=== PATIENT | male | born 1975 | race American Indian/Alaskan Native ===

== ENCOUNTER 2016-09-11 17:22 | Inpatient (IN) | payer OTHER ==
[2016-09-11 17:23] VITALS: BMI 46.0
--- NOTE | 2016-09-11 17:59 | ED PDOC ---
HPI: General Adult Time Seen by Provider: 09/11/16 17:57 Chief Complaint (Nursing): Back Pain Chief Complaint (Provider): NECK PAIN History Per: Patient (41 Y/O MALE HERE WITH COMPLAINT OF NECK PAIN INTRACTABLE. DENIES ANY URINARY/RECTAL INCONTINENCE. HAS BEEN ON IBUPFRIN/HYDROCODONE FOR PAIN MANAGEMENT. SENT FOR EVALUATION/ADMISSION BY DR. OLSEN.) Past Medical History Reviewed: Historical Data, Nursing Documentation, Vital Signs Vital Signs: Last Vital Signs Temp 98.7 F 09/11/16 17:42 Pulse 98 H 09/11/16 17:42 Resp 18 09/11/16 17:42 BP 140/74 09/11/16 17:42 Pulse Ox 100 09/11/16 18:28 - Medical History PMH: Anxiety, Back Problems, Depression, HTN Denies: HIV, Chronic Kidney Disease - Surgical History Surgical History: Back Surgery - Family History Family History: States: Unknown Family Hx - Home Medications Home Medications: Ambulatory Orders Medication Instructions Recorded GlipiZIDE [Glucotrol] 5 mg PO DAILY 10/18/15 metFORMIN [glucOPHAGE] 500 mg PO BID 10/18/15 Hydrochlorothiazide [HCTZ] 12.5 mg PO DAILY 10/22/15 Zolpidem [Ambien] 10 mg PO HS 10/22/15 Hydrocodone/Acetaminophen 1 tab PO TID PRN 09/11/16 [Hydrocodon-Acetaminophen 5-325] Nystatin [Mycostatin Cream] 1 appl TOP TID 09/11/16 Triamcinolone 0.1% [Triamcinolone 1 appl TOP TID 09/11/16 0.1% Cream] - Allergies Allergies/Adverse Reactions: Allergies Allergy/AdvReac Type Severity Reaction Status Date / Time No Known Allergies Allergy Verified 10/22/15 07:43 Review of Systems ROS Statement: Except As Marked, All Systems Reviewed And Found Negative Musculoskeletal: Positive for: Neck Pain Physical Exam - Reviewed Nursing Documentation Reviewed: Yes Vital Signs Reviewed: Yes - Physical Exam Appears: Positive for: Well, Non-toxic, No Acute Distress Head Exam: Positive for: ATRAUMATIC, NORMAL INSPECTION, NORMOCEPHALIC Skin: Positive for: Normal Color, Warm, DRY Eye Exam: Positive for: EOMI, Normal appearance, PERRL ENT: Positive for: Normal ENT Inspection Neck: Positive for: Painless ROM. Negative for: Normal (PARACERVICAL TENDERNESS ) Cardiovascular/Chest: Positive for: Regular Rate, Rhythm Respiratory: Positive for: CNT, Normal Breath Sounds Gastrointestinal/Abdominal: Positive for: Normal Exam, Bowel Sounds, Soft Back: Positive for: Normal Inspection Extremity: Positive for: Normal ROM Neurologic/Psych: Positive for: Alert, Oriented - Laboratory Results Result Diagrams: 09/11/16 18:21 - ECG O2 Sat by Pulse Oximetry: 100 - Progress ED Course And Treament: D/W DR. GUERRIER. Disposition - Clinical Impression Clinical Impression: Intractable back pain - Patient ED Disposition Is Patient to be Admitted: No - Disposition Disposition Time: 17:59 Condition: FAIR - Pt Status Changed To: Hospital Disposition Of: Inpatient - Admit Certification Admit to Inpatient:: After my assessment, the patient will require hospitalization for at least two midnights. This is because of the severity of symptoms shown, intensity of services needed, and/or the medical risk in this patient being treated as an outpatient.
[2016-09-11 18:28] LABS: BASO # 0.1 K/uL (0.0-0.2); BASO % 1.2 % (0.0-2.0); EOS # 0.1 K/uL (0.0-0.7); EOS % 1.7 % (0.0-4.0); HEMATOCRIT 48.7 % (35.0-51.0); LYMPH # 2.4 K/uL (1.0-4.3); MEAN CELL VOLUME 90.8 fl (80.0-94.0); MEAN CORPUSCULAR HEMOGLOBIN 29.4 pg (27.0-31.0); MEAN CORPUSCULAR HGB CONC 32.4 g/dL (33.0-37.0); MEAN PLATELET VOLUME 10.1 fl (7.2-11.7); MONO # 0.5 K/uL (0.0-0.8); MONO % 7.3 % (0.0-10.0); NEUT # 3.3 K/uL (1.8-7.0); NEUT % 51.8 % (50.0-75.0); NRBC % 0.1 % (0.0-0.0); RED CELL DISTRIBUTION WIDTH 12.8 % (11.5-14.5); WHITE BLOOD COUNT 6.3 K/uL (4.8-10.8)
[2016-09-11 19:06] LABS: ALB/GLOB RATIO 1.2 (1.0-2.1); ALKALINE PHOSPHATASE 94 U/L (38-126); ALT/SGPT 51 U/L (21-72); AST/SGOT 40 U/L (17-59); BILIRUBIN,TOTAL 0.8 mg/dl (0.2-1.3); BLOOD UREA NITROGEN 13 mg/dl (9-20); CALCIUM 9.4 mg/dL (8.4-10.2); CARBON DIOXIDE 24 mmol/L (22-30); CHLORIDE 101 mmol/L (98-107); GFR AFRICAN-AMERICAN > 60; GLUCOSE,RANDOM 297 mg/dL (75-110); POTASSIUM 4.1 MMOL/L (3.6-5.0); SODIUM 138 mmol/l (132-148); TOTAL PROTEIN 8.4 G/DL (6.3-8.2)
[2016-09-11 19:07] LABS: PARTIAL THROMBOPLASTIN TIME 27.4 Seconds (25.6-37.1)
[2016-09-11] MEDS: Insulin Regular 100 units/ml SC SCH (23:16)
[2016-09-12] MEDS ORDERED: Sodium Chloride 0.9% 1,000 ML IV SCH (06:00)
[2016-09-12] MEDS: Dextrose 5%/0.9% NS 1,000 ML IV SCH ×2 (06:07→19:29)
[2016-09-12] MEDS ORDERED: Succinylcholine 200 mg/10 ml Inj IV ONE (06:30)
[2016-09-12] MEDS ORDERED: Midazolam 2 MG/2 ML VIAL ONE ×2 (06:30→08:07)
[2016-09-12] MEDS ORDERED: Propofol 10 mg/ml Inj (20 ML) ONE ×2 (06:30→07:40)
[2016-09-12] MEDS ORDERED: Lidocaine Hydrochloride 5 ML INJ ONE (06:31)
[2016-09-12] MEDS ORDERED: Rocuronium 10 mg/ml (5 ml) ONE (06:31)
[2016-09-12] MEDS ORDERED: Neostigmine Methylsulfate 3mg/3ml Syringe IV ONE (06:31)
[2016-09-12] MEDS ORDERED: Thrombin Topical 5,000 IU Spray Kit ONE (07:08)
[2016-09-12] MEDS ORDERED: Absorbable Gelatin Sponge Size 12-7 ONE (07:08)
--- NOTE | 2016-09-12 07:23 | CP.PCM.HP ---
History of Present Illness - History of Present Illness History of Present Illness: This is a 41 y/o male admitted for intractable neck pain and radiculopathy. Diagnosed to have cervical disc diseasae and was started on PT and pain mgt but to no avail. he progressively worsened and sought consult through the ER. He has a hx of DM diagnosed a year ago. Had Lumbar laminectomy last year. Present on Admission - Present on Admission Any Indicators Present on Admission: No History of DVT/PE: No History of Uncontrolled Diabetes: Yes Urinary Catheter: No Decubitus Ulcer Present: No Review of Systems - Musculoskeletal Musculoskeletal: Arthralgias, Back Pain, Neck Pain, Radiating Pain into Limb, Tingling Past Patient History - Past Medical History & Family History Past Medical History?: Yes - Past Social History Smoking Status: Never Smoked - CARDIAC Hx Cardiac Disorders: Yes Hx Hypertension: Yes - PULMONARY Hx Respiratory Disorders: No - NEUROLOGICAL Hx Neurological Disorder: No - HEENT Hx HEENT Problems: No - RENAL Hx Chronic Kidney Disease: No - ENDOCRINE/METABOLIC Hx Endocrine Disorders: Yes Hx Diabetes Mellitus Type 2: Yes - HEMATOLOGICAL/ONCOLOGICAL Hx Blood Disorders: No Hx Human Immunodeficiency Virus (HIV): No - INTEGUMENTARY Hx Dermatological Problems: No - MUSCULOSKELETAL/RHEUMATOLOGICAL Hx Musculoskeletal Disorders: Yes Hx Falls: No Hx Unsteady Gait: Yes - GASTROINTESTINAL Hx Gastrointestinal Disorders: No - GENITOURINARY/GYNECOLOGICAL Hx Genitourinary Disorders: No - PSYCHIATRIC Hx Psychophysiologic Disorder: Yes Hx Anxiety: Yes Hx Depression: Yes Hx Substance Use: No - SURGICAL HISTORY Hx Surgeries: Yes Other/Comment: 10/19/2015-S/P Laminectomy and decompression - ANESTHESIA Hx Anesthesia: Yes Hx Anesthesia Reactions: No Hx Malignant Hyperthermia: No Has any member of the family had a problem w/ anesthesia?: No Meds Allergies/Adverse Reactions: Allergies Allergy/AdvReac Type Severity Reaction Status Date / Time No Known Allergies Allergy Verified 10/22/15 07:43 Physical Exam - Head Exam Head Exam: NORMAL INSPECTION - Eye Exam Eye Exam: Normal appearance - Neck Exam Neck exam: Positive for: Normal Inspection - Respiratory Exam Respiratory Exam: Clear to Auscultation Bilateral - Cardiovascular Exam Cardiovascular Exam: REGULAR RHYTHM - GI/Abdominal Exam GI & Abdominal Exam: Normal Bowel Sounds - Neurological Exam Neurological exam: Alert, CN II-XII Intact, Oriented x3 - Psychiatric Exam Psychiatric exam: Normal Mood Results - Vital Signs Recent Vital Signs: Last Vital Signs Temp 98.8 F 09/12/16 00:46 Pulse 94 H 09/12/16 00:46 Resp 19 09/12/16 00:46 BP 132/85 09/12/16 00:46 Pulse Ox 97 09/12/16 00:46 - Labs Result Diagrams: 09/11/16 18:21 09/11/16 18:21 Labs: Laboratory Results - last 24 hr 09/11/16 09/11/16 09/11/16 18:21 18:21 18:21 WBC 6.3 RBC 5.36 Hgb 15.8 Hct 48.7 MCV 90.8 MCH 29.4 MCHC 32.4 L RDW 12.8 Plt Count 188 MPV 10.1 Neut % (Auto) 51.8 Lymph % (Auto) 38.0 [place] % (Auto) 7.3 Eos % (Auto) 1.7 Baso % (Auto) 1.2 Neut # 3.3 Lymph # 2.4 [place] # 0.5 Eos # 0.1 Baso # 0.1 PT 10.8 INR 1.0 APTT 27.4 Sodium 138 Potassium 4.1 Chloride 101 Carbon Dioxide 24 Anion Gap 17 BUN 13 Creatinine 0.7 L Est GFR ( Amer) > 60 Est GFR (Non-Af Amer) > 60 POC Glucose (mg/dL) Random Glucose 297 H Calcium 9.4 Total Bilirubin 0.8 AST 40 ALT 51 Alkaline Phosphatase 94 Total Protein 8.4 H Albumin 4.5 Globulin 3.9 Albumin/Globulin Ratio 1.2 09/11/16 09/11/16 09/12/16 18:34 22:34 06:07 WBC RBC Hgb Hct MCV MCH MCHC RDW Plt Count MPV Neut % (Auto) Lymph % (Auto) [place] % (Auto) Eos % (Auto) Baso % (Auto) Neut # Lymph # [place] # Eos # Baso # PT INR APTT Sodium Potassium Chloride Carbon Dioxide Anion Gap BUN Creatinine Est GFR ( Amer) Est GFR (Non-Af Amer) POC Glucose (mg/dL) 279 H 287 H 251 H Random Glucose Calcium Total Bilirubin AST ALT Alkaline Phosphatase Total Protein Albumin Globulin Albumin/Globulin Ratio Assessment & Plan (1) Cervical radiculopathy at C5 Status: Acute (2) Intractable cervical neuropathic pain Status: Acute (3) Diabetes mellitus type 2 in obese Status: Acute (4) Hypertension Status: Acute - Assessment and Plan (Free Text) Plan: REVIEWED ALL LABS AND ekg AND cxr PATIENT IS MEDICALLY STABLE FOR SURGERY WILL HAVE ACCUCHECK WITH COVERGE FOR NOW WILL START WITH PO HYPOGLYCEMICS POST OP PAIN MGT
[2016-09-12] MEDS ORDERED: Lactated Ringer's 1,000 ML IV ONE ×2 (07:42→08:00)
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
[2016-09-12] MEDS ORDERED: HEMOSTATIC MATRIX 10 ML DIS.NEEDLE TOP ONE (08:29)
--- NOTE | 2016-09-12 08:55 | CARD ---
APPROVED REPORT EKG Measurement Heart [id number] <Conclusion> Normal sinus rhythm Normal ECG
[2016-09-12] MEDS: HYDROmorphone 0.5 mg/0.5 ml ISec IVP PRN ×2 (09:25→09:35)
[2016-09-12] MEDS: Insulin Regular 100 units/ml SC SCH ×4 (09:50→22:10)
--- NOTE | 2016-09-12 10:52 | RAD ---
HISTORY: ROUTINE COMPARISON: Chest x-ray performed 07/03/16 TECHNIQUE: Chest, one view. FINDINGS: Examination limited by habitus. LUNGS: No focal consolidation. Please note that chest x-ray has limited sensitivity for the detection of pulmonary masses. PLEURA: No significant pleural effusion identified. No definite pneumothorax . CARDIOVASCULAR: Heart size appears top normal. OSSEOUS STRUCTURES: No acute osseous abnormality identified. VISUALIZED UPPER ABDOMEN: Unremarkable. OTHER FINDINGS: None. IMPRESSION: Examination limited by habitus. No focal consolidation, significant pleural effusion, or definite pneumothorax identified.
[2016-09-12] MEDS ORDERED: ceFAZolin 1 GM in Sodium Chloride 0.9% 100 ML IVPB SCH (12:45)
[2016-09-12] MEDS: Lactated Ringer's 1,000 ML IV SCH ×2 (14:45→19:31)
[2016-09-12] MEDS: Oxycodone/Acetaminophen 5/325 mg Tab PO PRN ×2 (16:01→22:17)
[2016-09-12 16:11] VITALS: RESP 18
--- NOTE | 2016-09-12 16:26 | RAD ---
PROCEDURE: Intraoperative Fluoroscopy. Fluoroscopy up to 1 hr. HISTORY: ACDF FINDINGS: Fluoroscopic assistance was provided Please refer to the operative (continuous mode) utilized during the procedure: 23.7 seconds.
--- NOTE | 2016-09-12 18:42 | OP ---
PROCEDURE DATE: 09/12/2016 PREOPERATIVE DIAGNOSIS: Cervical disk herniation at 4-5. POSTOPERATIVE DIAGNOSIS: Cervical disk herniation at 4-5. PROCEDURE: Partial vertebrectomy of C4 and C5, diskectomy of C4-C5, interbody fusion of C4-C5 using PEEK and bone, plating and instrumentation from C4 to C5 using Amendia plate. SURGEON: Dr. Delaney [employer] HAND FINISHER: Leta Mendoza. Leta Mendoza is a physician assistant public defender who stayed through out the case from the beginning to the end, helped me perform the surgery. Fluoroscopy has been used for this procedure. Magnification and microscope has been used for the pro cedure. DESCRIPTION OF PROCEDURE: The patient was brought to the operating room, administered general endotr acheal anesthesia, placed in the supine position. Head was placed on a donut. Right side of the nec k was thoroughly prepped and draped in standard sterile manner after marking for skin incision for ce rvical vertebrectomy. After prepping and draping the area, horizontal skin incision in the neck la on has been made. Bleeding skins have been controlled with bipolar field automobile adjuster. Using a Bovie coagul ator, platysma has been cut. Dissection has been carried down to trachea and esophagus medially, allison rnomastoid carried out laterally. Prevertebral fascia has been cauterized and cut. Identification o f levels has been done with the help of fluoroscopy. Longus colli has been detached from attachment of vertebral bodies of C4-C5. Danek retractors have been applied. Rest of the operation carried out with microscopic magnification and illumination. Partial vertebrectomy of C4-C5, diskectomy of C4-C5: By using high-speed drill, vertebral bodies of C4-C5 have been drilled. Drilling is continued posteriorly. Intermittent diskectomy has been perfor med by using #11 blade, pituitary rongeurs, curettes. Partial vertebrectomy has been performed remov ing half of the vertebral body including cartilage and plates. A disk herniation noted, that has bee n removed. Posterior longitudinal ligament has been opened. Dura has been decompressed side to side . Interbody fusion of C4-C5 using PEEK and bone: A PEEK implant has been brought in, filled with the d emineralized bone, gently tapped in the space created by the partial vertebrectomy of C4 and C5. Pos ition has been confirmed to be good. Plating and instrumentation C4-C5 using Amendia plate: An Amendia plate has been placed in vertebral bodies of C4-C5. By using a 12 mm screw, it has been secured under fluoroscopic guided control. He mostasis best achieved. Anderson drain placed in the wound, brought out through a separate stab knife skin incision. Platysma closed with 3-0 Vicryl. Skin has been closed with intradermal 3-0 Vicryl s titches. The patient tolerated the procedure. After procedure, mobilized to the recovery room in st able and awake condition. Dave Delaney MD cc: [id number] TT: 09/12/2016 18:42:01 sn
[2016-09-13] MEDS ORDERED: ceFAZolin 1 GM in Sodium Chloride 0.9% 100 ML IVPB SCH (02:40)
[2016-09-13] MEDS: Lactated Ringer's 1,000 ML IV SCH (05:24)
[2016-09-13] MEDS: Insulin Regular 100 units/ml SC SCH ×4 (06:48→22:24)
[2016-09-13] MEDS: Oxycodone/Acetaminophen 5/325 mg Tab PO PRN ×2 (09:15→17:53)
[2016-09-13] MEDS: Benzocaine/Menthol (Cepacol) Lozenge PO PRN ×2 (11:12→17:49)
--- NOTE | 2016-09-13 13:08 | CP.PCM.PN ---
Subjective - Date & Time of Evaluation Date of Evaluation: 09/13/16 Time of Evaluation: 10:06 - Subjective Subjective: Patient seen and evaluated at bedside with attending. No acute events overnight. s/p ant cervical disectomy fusion POD #1. No fever, chills. Pain well controlled with meds. No chest pain, sob, palpitations. Tolerating PO well. Objective - Vital Signs/Intake and Output Vital Signs (last 24 hours): Temp Pulse Resp BP Pulse Ox 99.4 F 93 H 18 152/102 H 96 09/13/16 12:17 09/13/16 12:38 09/13/16 12:17 09/13/16 12:17 09/13/16 12:17 Intake and Output: 09/13/16 09/13/16 06:59 18:59 Intake Total 1340 Output Total 2004 Balance -665 - Medications Medications: Current Medications Benzocaine/Menthol (Cepacol Sore Throat) 1 pillo PO Q3 PRN PRN Reason: Sore Throat Last Admin: 09/13/16 11:12 Dose: 1 pillo Cyclobenzaprine HCl (Flexeril) 5 mg PO TID PRN PRN Reason: Muscle spasm Glipizide (Glucotrol) 5 mg PO BID [facility] Last Admin: 09/13/16 12:48 Dose: Not Given Hydrochlorothiazide (Microzide) 12.5 mg PO DAILY [facility] Last Admin: 09/13/16 09:13 Dose: 12.5 mg Cefazolin Sodium 1 gm/ Sodium (Chloride) 100 mls @ 100 mls/hr IVPB Q12H [facility] Last Admin: 09/13/16 02:04 Dose: 100 mls/hr Insulin Human Regular (Humulin R) 0 units SC ACCU-CHECK [facility] PRN Reason: Protocol Last Admin: 09/13/16 12:45 Dose: 8 units Lisinopril (Zestril) 5 mg PO DAILY [facility] Metformin HCl (Glucophage) 1,000 mg PO BIDWM [facility] Last Admin: 09/13/16 12:48 Dose: Not Given Oxycodone/Acetaminophen (Percocet 5/325 Mg Tab) 1 tab PO Q4 PRN PRN Reason: Pain, moderate (4-7) Stop: 09/15/16 12:38 Last Admin: 09/13/16 09:15 Dose: 1 tab Oxycodone/Acetaminophen (Percocet 5/325 Mg Tab) 2 tab PO Q6 PRN PRN Reason: Pain, severe (8-10) Stop: 09/15/16 12:38 Last Admin: 09/12/16 22:17 Dose: 2 tab Sitagliptin Phosphate (Januvia) 100 mg PO DAILY [facility]ACLYN Last Admin: 09/13/16 12:47 Dose: 100 mg - Labs Labs: 09/11/16 18:21 09/11/16 18:21 PT 10.8 Seconds (9.8-13.1) 09/11/16 18:21 INR 1.0 (0.9-1.2) 09/11/16 18:21 APTT 27.4 Seconds (25.6-37.1) 09/11/16 18:21 - Constitutional Appears: Well, Non-toxic, No Acute Distress - Head Exam Head Exam: ATRAUMATIC, NORMAL INSPECTION, NORMOCEPHALIC - Neck Exam Additional comments: dressing, cdi - Respiratory Exam Respiratory Exam: Clear to Ausculation Bilateral, NORMAL BREATHING PATTERN - Cardiovascular Exam Cardiovascular Exam: REGULAR RHYTHM, +S1, +S2. absent: Murmur - GI/Abdominal Exam GI & Abdominal Exam: Soft, Normal Bowel Sounds. absent: Tenderness Additional comments: obese - Extremities Exam Extremities Exam: Normal Inspection - Neurological Exam Neurological Exam: Alert, Awake, Oriented x3 - Psychiatric Exam Psychiatric exam: Normal Affect, Normal Mood - Skin Skin Exam: Dry, Intact, Normal Color, Warm Assessment and Plan (1) Cervical radiculopathy at C5 Assessment & Plan: s/p ant cervical discectomy fusion POD #1 Pain control PRN with percocet/flexeril Surgery following Physical therapy Status: Acute (2) Diabetes mellitus type 2 in obese Assessment & Plan: Labile glucose readings accucheck achs ISS Metformin 1000mg BID Januvia 100mg daily Glipizide 5mg BID Continue to monitor diabetic diet Status: Acute (3) Hypertension Assessment & Plan: slightly elevated continue current meds continue to monitor Status: Acute
[2016-09-14] MEDS: Insulin Regular 100 units/ml SC SCH ×2 (06:43→12:05)
[2016-09-14 06:44] LABS: HEMATOCRIT 48.5 % (35.0-51.0); MEAN CELL VOLUME 91.6 fl (80.0-94.0); MEAN CORPUSCULAR HEMOGLOBIN 29.7 pg (27.0-31.0); MEAN CORPUSCULAR HGB CONC 32.4 g/dL (33.0-37.0); RED CELL DISTRIBUTION WIDTH 12.8 % (11.5-14.5); WHITE BLOOD COUNT 8.4 K/uL (4.8-10.8)
[2016-09-14 06:58] LABS: BLOOD UREA NITROGEN 9 mg/dl (9-20); CALCIUM 9.4 mg/dL (8.4-10.2); CARBON DIOXIDE 28 mmol/L (22-30); CHLORIDE 99 mmol/L (98-107); GFR AFRICAN-AMERICAN > 60; GLUCOSE,RANDOM 220 mg/dL (75-110); POTASSIUM 3.6 MMOL/L (3.6-5.0); SODIUM 138 mmol/l (132-148)
[2016-09-14] MEDS: Oxycodone/Acetaminophen 5/325 mg Tab PO PRN (08:41)
[2016-09-14] MEDS: Benzocaine/Menthol (Cepacol) Lozenge PO PRN (08:42)
[2016-09-14 12:00] VITALS: BP 132/88; PULSE 105; TEMP 98.7; O2SAT 95
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
== END 2016-09-14 13:33 | disposition home or self-care (01) | DRG 472 ==
LOC: H.ER 17:22 → H.ERHOLD 18:16 → H.MEDSURG1 21:19 → H.TEL 09-12 11:56
PROVIDERS: ADMIT Family Medicine; ATTEND Family Medicine
PROC: 0RG20A1 (ICD-10-PCS; 2016-09-12)
PROC: 0RT30ZZ Resection of Cervical Vertebral Disc, Open Approach (ICD-10-PCS; principal; 2016-09-12 07:45)
DX: M50.121 Cervical disc disorder at C4-C5 level with radiculopathy (principal); M50.021 Cervical disc disorder at C4-C5 level with myelopathy; Z68.42 Body mass index [BMI] 45.0-49.9, adult; I10 Essential (primary) hypertension; E11.9 Type 2 diabetes mellitus without complications; E66.9 Obesity, unspecified; G47.33 Obstructive sleep apnea (adult) (pediatric); Z79.84 Long term (current) use of oral hypoglycemic drugs